=== PATIENT | female | born 1950 | race Two or more races ===

== ENCOUNTER 2018-12-04 11:47 | Outpatient (CLI) | payer OTHER ==
[~2018-12-04 11:47] MED LIST: INDAPAMIDE1.25 MG; SYNTHROID75 MCG
== END 2018-12-04 15:29 | disposition home or self-care (01) ==
LOC: RAD 11:47
DX: M54.2 Cervicalgia (principal); M25.512 Pain in left shoulder

== ENCOUNTER 2018-12-05 07:14 | Outpatient (CLI) | payer OTHER | END 2018-12-05 07:32 | disposition home or self-care (01) | LOC: LAB 07:14 | DX: N39.0 Urinary tract infection, site not specified (principal); E03.8 Other specified hypothyroidism; I10 Essential (primary) hypertension ==

== ENCOUNTER 2021-07-20 10:50 | Outpatient (CLI) | payer OTHER | END 2021-07-20 10:59 | disposition home or self-care (01) | LOC: RAD 10:50 | PROVIDERS: ATTEND Neuromusculoskeletal Medicine, Sports Medicine | DX: M20.11 Hallux valgus (acquired), right foot (principal); M20.12 Hallux valgus (acquired), left foot ==

== ENCOUNTER 2022-02-12 11:08 | Outpatient (CLI) | payer OTHER | END 2022-02-12 11:12 | disposition home or self-care (01) | LOC: MRI 11:08 | PROVIDERS: ATTEND Physical Therapist | DX: G25.0 Essential tremor (principal); G93.40 Encephalopathy, unspecified; E03.9 Hypothyroidism, unspecified; I10 Essential (primary) hypertension; E55.9 Vitamin D deficiency, unspecified | CPT/HCPCS: 70551 ==

== ENCOUNTER 2022-11-20 08:40 | Outpatient (CLI) | payer OTHER | END 2022-11-20 08:49 | disposition home or self-care (01) | LOC: SONOGRAMA 08:40 | DX: M79.641 Pain in right hand (principal); M25.531 Pain in right wrist; M19.031 Primary osteoarthritis, right wrist ==